=== PATIENT | female | born 1965 | race Caucasian/White ===

== ENCOUNTER 2017-01-22 09:19 | Outpatient (CLI) | payer BC ==
[~2017-01-22] VITALS: Ht 152.4 cm; Wt 122.5 kg
[2017-01-22] VITALS (12 sets, daily range): BP systolic 124–153; BP diastolic 77–87
[2017-01-22 10:03] LABS: BASO % 0 % (0-3); EOS % 2 % (0-3); HEMATOCRIT 46.2 % (36.0-47.0); HEMOGLOBIN 15.9 g/dL (12.0-15.5); LYMPH # 1.6 x10^3/uL (1.0-4.8); LYMPH % 18 % (24-48); MEAN CORPUSCULAR HEMOGLOBIN 30 pg (25-35); MEAN CORPUSCULAR HGB CONC 34 g/dL (31-37); MEAN CORPUSCULAR VOLUME 88 fL (79-100); MONO % 9 % (0-9); NEUT % 71 % (31-73); PLATELET COUNT 307 x10^3/uL (140-400); RED BLOOD COUNT 5.28 x10^6/uL (3.50-5.40); RED CELL DISTRIBUTION WIDTH 14.1 % (11.5-14.5); WHITE BLOOD COUNT 8.8 x10^3/uL (4.0-11.0)
[2017-01-22 10:10] LABS: CALCIUM 9.4 mg/dL (8.5-10.1); CREATININE 0.9 mg/dL (0.6-1.0); GFR 65.5; POTASSIUM 3.5 mmol/L (3.5-5.1)
[2017-01-22 10:14] LABS: PROTHROMBIN TIME PATIENT 12.6 SEC (11.7-14.0)
[2017-01-22] MEDS ORDERED: LEVO25TA4 PO (10:23)
[2017-01-22] MEDS ORDERED: METO25TA4 PO (10:23)
[2017-01-22] MEDS ORDERED: ASPI-482 PO (10:23)
[2017-01-22] MEDS ORDERED: IOHEXOL 350 MG/ML 100 ML VIAL. ONE (10:25)
[2017-01-22] MEDS ORDERED: LIDOCAINE 2% 20 ML VIAL. ONE (10:26)
[2017-01-22] MEDS ORDERED: LOSA50TA6 PO (10:27)
[2017-01-22] MEDS ORDERED: AMLO10TA2 PO (10:27)
[2017-01-22] MEDS ORDERED: SIMV40TA3 PO (10:27)
[2017-01-22] MEDS ORDERED: MIDAZOLAM HCL/PF 5 MG/5 ML VIAL. ONE (11:32)
[2017-01-22] MEDS ORDERED: HEPARIN for IV BOLUS 10,000 UNIT/10 ML VIAL. ONE (11:32)
[2017-01-22] MEDS ORDERED: VERAPAMIL 5 MG/2 ML VIAL. ONE (11:32)
[2017-01-22] MEDS ORDERED: fentaNYL PF VIAL 250 MCG/5 ML VIAL ONE (11:32)
[2017-01-22] MEDS ORDERED: NITROGLYCERIN 200 MCG/2 ML SYRINGE FOR CATH/VASC LAB. ONE (11:34)
--- NOTE | 2017-01-22 11:35 | PDOC ---
MODERATE SEDATION ASSESSMENT RISKS/ALTERNATIVES Risks/Alternatives Risks and alternatives of this type of sedation and procedure discussed with: RISK/ALTERNATIVES: Patient H & P ON CHART H & P H & P on chart and reviewed for co-morbid conditions and appropriate labs. H&P ON CHART: Yes STATUS PREG STATUS ASSESSED: N/A MEDS/ALLERGIES REVIEWED Meds/Allergies Reviewed Medications and Allergies including time and route of recently administered narcotics and sedatives. MEDS/ALLERGIES REVIEWED: Yes ASA RATING ASA RATING: II AIRWAY ASSESSMENT Airway Assessment Airway patency, oral function limitations, presence of caps, crowns, dentures, partials, and ability to extend neck assessed. AIRWAY ASSESSMENT: Yes MALLAMPATI SCORE MALLAMPATI SCORE: III PRE-SEDATION ASSESSMENT PRE-SEDATION ASSESSMENT: Yes ERASMO SWANSON MD Jan 22, 2017 11:35
[2017-01-22] MEDS ORDERED: IOHEXOL 300 MG/ML 100ML VIAL. IART ONE (12:00)
[2017-01-22] MEDS ORDERED: HEPARIN for IV BOLUS 10,000 UNIT/10 ML VIAL. IART ONE (12:00)
[2017-01-22] MEDS ORDERED: CONTRAST GIVEN MC PRN (12:00)
[2017-01-22] MEDS ORDERED: NITROGLYCERIN 200 MCG/2 ML SYRINGE FOR CATH/VASC LAB. IART ONE (12:00)
[2017-01-22] MEDS ORDERED: MIDAZOLAM HCL/PF 5 MG/5 ML VIAL. IV ONE (12:00)
[2017-01-22] MEDS ORDERED: LIDOCAINE 2% 20 ML VIAL. IJ ONE (12:00)
[2017-01-22] MEDS ORDERED: VERAPAMIL 5 MG/2 ML VIAL. IART ONE (12:00)
[2017-01-22] MEDS ORDERED: fentaNYL PF VIAL 250 MCG/5 ML VIAL IV ONE (12:00)
--- NOTE | 2017-01-22 16:01 | CARD ---
APPROVED REPORT Procedure(s) performed: MODERATE SEDATION: 25 MIN HISTORY : The patient is a 51 year-old female with a history of . INDICATION The indication(s) include : positive stress test, chest pain. PROCEDURE NARRATIVE The patient was brought electively to the cardiac catheterization lab. A timeout was performed confi rming the patient's name, date of , procedure, and site of procedure. All necessary personnel w ere wearing the appropriate protective equipment and radiation monitor devices. After explaining the risks and benefits of the procedure and alternatives, informed consent was obtained. (See nursing no josemanuel for medications administered). The right wrist was sterilely prepped and draped in the usual fas hion. The right wrist was infiltrated with 1 mL of 2% lidocaine for subcutaneous anesthesia. A 6 Fr ench Terumo glide sheath was inserted into the right radial artery without difficulty. Right and lef t coronary angiography was performed using a 6Fr TIG 4.0 catheter. Left ventricular end diastolic pr essure was obtained with a pigtail catheter and pullback was performed after left ventriculography. All catheter exchanges and advancements were performed over a guidewire. At case completion the righ t radial sheath was removed and a Terumo radial band was applied with 13 ml of air. The patient tole rated the procedure well and there were no immediate complications. HEMODYNAMICS: LVEDP 8 mm Hg No gradient on LV to aortic pullback. LEFT VENTRICULOGRAM: EF 65% Anterobasal: Normal. Anterolateral: Normal Apical: Normal Diaphragmatic: Normal Posterobasal: Normal *No significant mitral or aortic insufficiency. CORONARY ANGIOGRAPHY: LM is a large caliber vessel with normal angiographic appearance. LAD is a moderate caliber vessel with normal angiographic appearance. D1 is a small caliber vessel with normal angiographic appearance. LCx is a moderate caliber non-dominant vessel with normal angiographic appearance. OM1 is a moderate caliber vessel with normal angiographic appearance. RCA is a moderate caliber dominant tortuous vessel with normal angiographic appearance. RPDA and RPL are small caliber vessels with normal angiographic appearance. Conclusion 1. No significant coronary artery disease. Recommendations Aggressive Medical Therapy
== END 2017-01-22 15:30 | disposition home or self-care (01) ==
LOC: CCL 09:19
PROVIDERS: ATTEND Internal Medicine Cardiovascular Disease
DX: R94.39 Abnormal result of other cardiovascular function study (principal); Z79.01 Long term (current) use of anticoagulants; E78.00 Pure hypercholesterolemia, unspecified; I10 Essential (primary) hypertension; E66.9 Obesity, unspecified; Z68.43 Body mass index [BMI] 50.0-59.9, adult; K21.9 Gastro-esophageal reflux disease without esophagitis; E03.9 Hypothyroidism, unspecified; F41.9 Anxiety disorder, unspecified; Z90.49 Acquired absence of other specified parts of digestive tract; Z88.1 Allergy status to other antibiotic agents; Z90.710 Acquired absence of both cervix and uterus; Z91.040 Latex allergy status
CPT/HCPCS: 36415; 80048; 85025; 85610; 93458; 99152; 99153; C1769; C1892; J1644; J2250; J3010; J3490; Q9967; J2001

== ENCOUNTER → 2018-08-29 | Outpatient (CLI) | payer BC ==
[2017-01-22 15:31] VITALS: BP 147/85
[~2018-08-29] MED LIST: AMLO10TA8 PO; ASPI-482 PO; LEVO25TA4 PO; LOSA-73 PO; METO25TA4 PO; SIMV40TA3 PO
--- NOTE | 2018-08-29 10:41 | KCIC ---
MRI of the lumbar spine without contrast 08/29/2018 CLINICAL HISTORY: Chronic low back pain with bilateral leg numbness, right greater than left. TECHNIQUE: Unenhanced T1-weighted and T2-weighted sagittal and axial and inversion recovery sagittal images the lumbar spine were obtained. FINDINGS: Minimal S-shaped curvature of the thoracolumbar spine is seen. Very mild anterolisthesis of L4 in relation L5 is seen. Degenerative signal changes are seen involving all of the disks of the lumbar spine. Degenerative signal changes are seen within the marrow surrounding these discs. The conus medullaris is normal morphology, position, and signal characteristics. Incidental note is made of a 9 mm perineural cyst within the sacral spinal canal. The L1-2 disc space is within normal limits. At the L2-3 disc space is a minimal generalized disc bulge. Degenerative changes are seen involving the facet joints bilaterally. There is mildly ligamentum hypertrophy bilaterally. These findings do not result in significant central spinal canal or neural foraminal stenosis. At the L3-4 disc space there is a mild generalized disc bulge. Degenerative changes are seen involving the facet joints bilaterally. There is moderate ligamentum flavum hypertrophy bilaterally. Small facet joint effusions are seen. These findings when combined do not result in significant central spinal canal or neural foraminal stenosis. At the L4-5 disc space there is a mild generalized disc bulge. Degenerative changes are seen involving the facet joints bilaterally. There is moderate ligamentum flavum hypertrophy bilaterally. These findings when combined do not result in significant central spinal canal or neural foraminal stenosis. At the L5-S1 disc space there is a minimal generalized disc bulge. Degenerative changes are seen involving the facet joints bilaterally. These findings do not result in significant central spinal canal or neural foraminal stenosis. IMPRESSION: The changes of degenerative disc disease are seen throughout the mid and lower lumbar spine. These findings do not result in significant central spinal canal or neural foraminal stenosis. Electronically signed by: Bandar Barcenas MD (08/29/2018 10:39 AM) [facility]
== END | disposition home or self-care (01) ==
LOC: KCIC MRI 08:21
PROVIDERS: ATTEND Physician Assistant Medical
DX: M51.36 Other intervertebral disc degeneration, lumbar region (principal); M47.817 Spondylosis without myelopathy or radiculopathy, lumbosacral region; M51.27 Other intervertebral disc displacement, lumbosacral region; M47.814 Spondylosis without myelopathy or radiculopathy, thoracic region; G96.19 Other disorders of meninges, not elsewhere classified; M53.3 Sacrococcygeal disorders, not elsewhere classified; M43.8X5 Other specified deforming dorsopathies, thoracolumbar region
CPT/HCPCS: 72148

== ENCOUNTER 2019-02-13 10:58 | Inpatient (IN) | payer BC ==
[~2019-02-13] VITALS: Ht 152.4 cm; Wt 114.3 kg
[2019-02-13] VITALS (7 sets, daily range): BP systolic 124–160; BP diastolic 72–92
[~2019-02-13 10:58] MED LIST changes: +SIMV40TA18 PO; -SIMV40TA3 PO
--- NOTE | 2019-02-13 13:00 | NUR ---
Patient of Dr Puga admit at 1245 from [facility] via EMS. 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 Vital signs are wnl. Family at bedside. Patient in no apparent distress.
[2019-02-13] MEDS ORDERED: SIMV20TA18 PO (13:28)
[2019-02-13] MEDS ORDERED: VERAPAMIL 5 MG/2 ML VIAL. ONE (14:20)
[2019-02-13] MEDS ORDERED: HEPARIN for IV BOLUS 10,000 UNIT/10 ML VIAL. ONE (14:20)
[2019-02-13] MEDS ORDERED: fentaNYL PF VIAL 100 MCG/2 ML VIAL ONE (14:20)
[2019-02-13] MEDS ORDERED: MIDAZOLAM HCL/PF 5 MG/5 ML VIAL. ONE (14:20)
[2019-02-13] MEDS ORDERED: NITROGLYCERIN 200 MCG/2 ML SYRINGE FOR CATH/VASC LAB. ONE (14:20)
[2019-02-13] MEDS ORDERED: IODIXANOL 320 MG/ML 100 ML VIAL. ONE (14:21)
[2019-02-13] MEDS ORDERED: LIDOCAINE 1% PF 2 ML VIAL. ONE (14:21)
--- NOTE | 2019-02-13 14:34 | CONS ---
DATE OF CONSULTATION: 02/13/2019 REASON FOR CONSULTATION: Chest pain and positive troponin. HISTORY OF PRESENT ILLNESS: The patient is a pleasant 53-year-old woman with past medical history as noted below, presents to the hospital in the setting of some chest discomfort and palpitations. She was noted to have elevated troponin in the setting of a blood pressure of 200/100. After discussion over at [facility], she wished to be transferred to [place] for further evaluation with possibility of cardiac catheterization. Upon arrival to the ICU here, her blood pressure is well controlled and she denies any current chest pain, dyspnea, orthopnea or PND. She has not had any significant cardiac issues, but most recently underwent some spinal surgery and after this, had some palpitations the next day, which then prompted some elevated blood pressures and this letter to be evaluated in the hospital. Currently, she denies any other acute issues. She has a history of obesity and has been struggling with that above, otherwise no acute issues. PAST MEDICAL HISTORY: 1. Hypertension. 2. Dyslipidemia. 3. Morbid obesity. SOCIAL HISTORY: No alcohol, tobacco or illicit drug use. FAMILY HISTORY: Noncontributory. REVIEW OF SYSTEMS: Negative unless otherwise mentioned above in HPI. ALLERGIES: No known drug allergies. CURRENT CARDIOVASCULAR MEDICATIONS: Include losartan, amlodipine, metoprolol, and simvastatin. PHYSICAL EXAMINATION: VITAL SIGNS: Stable with blood pressure 120/80, heart rate 72. HEAD AND NECK: Unremarkable. CARDIAC: Regular rate and rhythm without murmurs, rubs or gallops. LUNGS: Clear to auscultation bilaterally. ABDOMEN: Obese, protuberant, nontender, nondistended. EXTREMITIES: No clubbing, cyanosis, or edema. 2+ radial pulses and 1+ dorsalis pedis pulses. NEUROLOGIC: No focal deficits. DIAGNOSTIC STUDIES: Troponin elevated to 0.812 at [facility] when initial was 0.017. EKG demonstrates sinus rhythm with prior inferior infarct. She had a cardiac catheterization 2 years ago, which did not reveal any significant pathology. Nuclear stress test 2 years ago revealed possible 3-vessel coronary artery disease. IMPRESSION: Chest pain in the setting of elevated blood pressure. I discussed with the patient that there is a lower chance of any significant coronary artery disease to develop over 2 years, but given her risk factors of obesity, hypertension, and dyslipidemia, it is not impossible that she may have developed new coronary lesions, which could have led to this elevated troponin. The patient will discuss the options including continued medical therapy and echocardiogram with conservative management versus more aggressive evaluation with cardiac catheterization for her non-ST elevation myocardial infarction. RECOMMENDATIONS: 1. Possible cardiac catheterization versus conservative management. 2. Continue aspirin and Lovenox until the patient decides regarding her management. 3. Supportive care. Thank you for this consultation. ERASMO SWANSON MD DR: TIM/nts JOB#: [id number] / [id number]
[2019-02-13 14:38] LABS: BASO # 0.1 x10^3/uL (0.0-0.2); BASO % 1 % (0-3); EOS % 0 % (0-3); HEMATOCRIT 50.6 % (36.0-47.0); LYMPH # 1.7 x10^3/uL (1.0-4.8); LYMPH % 12 % (24-48); MEAN CORPUSCULAR HEMOGLOBIN 31 pg (25-35); MEAN CORPUSCULAR HGB CONC 36 g/dL (31-37); MEAN CORPUSCULAR VOLUME 86 fL (79-100); MONO # 1.2 x10^3/uL (0.0-1.1); MONO % 9 % (0-9); NEUT # 11.1 x10^3/uL (1.8-7.7); NEUT % 79 % (31-73); PLATELET COUNT 222 x10^3/uL (140-400); RED BLOOD COUNT 5.87 x10^6/uL (3.50-5.40); RED CELL DISTRIBUTION WIDTH 14.6 % (11.5-14.5); WHITE BLOOD COUNT 14.1 x10^3/uL (4.0-11.0)
[2019-02-13 14:48] LABS: CALCIUM 9.6 mg/dL (8.5-10.1); CREATININE 0.8 mg/dL (0.6-1.0); GFR 74.5
[2019-02-13 14:54] LABS: ALBUMIN 3.7 g/dL (3.4-5.0); ALBUMIN/GLOBULIN RATIO 1.1 (1.0-1.7); MAGNESIUM 2.6 mg/dL (1.8-2.4); TOTAL BILIRUBIN 1.3 mg/dL (0.2-1.0)
[2019-02-13] MEDS ORDERED: IODIXANOL 320 MG/ML 100 ML VIAL. IART ONE (15:30)
[2019-02-13] MEDS ORDERED: LIDOCAINE 1% PF 2 ML VIAL. INJ ONE (15:30)
[2019-02-13] MEDS ORDERED: HEPARIN for IV BOLUS 10,000 UNIT/10 ML VIAL. IART ONE (15:30)
[2019-02-13] MEDS ORDERED: fentaNYL PF VIAL 100 MCG/2 ML VIAL IV ONE (15:30)
[2019-02-13] MEDS ORDERED: VERAPAMIL 5 MG/2 ML VIAL. IART ONE (15:30)
[2019-02-13] MEDS ORDERED: NITROGLYCERIN 200 MCG/2 ML SYRINGE FOR CATH/VASC LAB. IART ONE (15:30)
[2019-02-13] MEDS ORDERED: MIDAZOLAM HCL/PF 5 MG/5 ML VIAL. IV ONE (15:30)
--- NOTE | 2019-02-13 16:25 | PDOC ---
Provider Note Provider Note Ok to DC from CV standpoint Would increase Toprol XL to 50mg daily Can increase Losartan to 50mg bid if BP still elevated to > 140/90 Discussed with patient and family. ERASMO SWANSON MD Feb 13, 2019 16:25
[2019-02-13] MEDS ORDERED: METO25TA4 PO (17:17)
--- NOTE | 2019-02-13 19:05 | NUR ---
Discharge Note: [facility] Discharge instructions and discharge home medications reviewed with Patient and a copy given. All questions have been answered and understanding verbalized. The following instructions and handouts were given: coronary angiogram Discontinued lines and drains: dressing clean dry and intact. Patient discharged to home with self care via family
--- NOTE | 2019-02-13 19:35 | NUR ---
Patient not being discharged. Dr. Puga and Dr. Menjivar notified that patient became dizzy, diaphoretic, nauseated upon getting clothes on and packing up for d/c. Patient's family at bedside-- came to RN station to notify Sumit WYMAN that patient was not feeling "right" and was pale. Lab orders received from Dr. Puga. CVC status remains. See orders, medications, labs.
[2019-02-13] MEDS: METOPROLOL TART IMMED RELEASE 25 MG TABLET. PO SCH (20:44)
[2019-02-13] MEDS: SIMVASTATIN 20 MG TABLET PO SCH (20:45)
[2019-02-13] MEDS ORDERED: METOPROLOL SUCC 24HR ER 25 MG TAB.ER.24H. PO SCH (21:00)
[2019-02-13] MEDS ORDERED: ENOXAPARIN 40 MG/0.4 ML SYRINGE. SQ SCH (21:00)
[2019-02-13] MEDS: MAG HYDROX/ALUMINUM HYD/SIMETH 30 ML ORAL.SUSP PO PRN (22:01)
[2019-02-13] MEDS: IV NORMAL SALINE 1000ML BAG 1,000 ML IV SCH (22:01)
[2019-02-14 03:00] VITALS: BP 119/72
[2019-02-14] MEDS: MAG HYDROX/ALUMINUM HYD/SIMETH 30 ML ORAL.SUSP PO PRN (03:03)
[2019-02-14 05:56] LABS: ALBUMIN/GLOBULIN RATIO 0.9 (1.0-1.7); CALCIUM 8.9 mg/dL (8.5-10.1); CREATININE 0.7 mg/dL (0.6-1.0); GFR 86.9; TOTAL BILIRUBIN 0.9 mg/dL (0.2-1.0); TOTAL PROTEIN 6.4 g/dL (6.4-8.2)
[2019-02-14 07:00] VITALS: BP 152/90
--- NOTE | 2019-02-14 08:10 | PN ---
DATE: 02/14/2019 SUBJECTIVE: The patient was transferred yesterday from [facility] as her troponin has steadily risen and as per Cardiology recommendation, she was transferred to [facility]. She had had a cardiac catheterization done and apparently her coronary arteries are normal and therefore, a decision was made to discharge her home after adjustment of her metoprolol XL to 50 mg and losartan to 50 mg. According to the nursing staff of the ICU, the patient was given her metoprolol and apparently was ready to go home when she developed dizziness and her blood pressure was noted to be higher; and therefore, a decision was made to keep the patient overnight given that her blood pressure has risen after increasing the beta-felicia. I was concerned that she might have pheochromocytoma; and therefore, we started a 24-hour urine collection for VMA and metanephrine and decided to cancel the planned discharge. On questioning, the patient denied any further episodes of chest pain and the nursing staff stated that she has an uneventful night. PHYSICAL EXAMINATION: GENERAL: When I examined her this morning, she was resting flat, sleeping comfortably, in no apparent respiratory distress. No pallor, jaundice, cyanosis or thyromegaly. No jugular venous distention. No lower limb edema. VITAL SIGNS: Her heart rate was 74, blood pressure was 119/72, temperature was 98.9, respiratory rate was 20, and oxygen saturation was 93% on 2 liters of oxygen. HEAD, EYES, EARS, NOSE AND THROAT: Showed normocephalic, atraumatic. NECK: Supple. HEART: Showed normal first and second heart sounds. No gallop or murmur. CHEST: Clear to auscultation. No crepitation or rhonchi. ABDOMEN: Distended, soft, nontender. NEUROLOGIC: She was sleepy, but arousable. All cranial nerves intact. She moves extremities without difficulty. Her intake over the last 24 hours was 1950, output was 700. LABORATORY DATA: Her lab work this morning showed a white cell count is down to 11,200, hemoglobin 15, hematocrit 46, MCV 88 and platelet count of 53,000. Her chemistry showed a serum sodium 139, potassium 4, chloride 104, bicarbonate 24, anion gap of 11, BUN 10, creatinine 0.7, estimated GFR was 87 mL per minute. Her glucose 128. Her calcium was 8.9. Total bilirubin, AST, ALT, alkaline phosphatase were normal. Her total protein was 6.4, albumin was 3. ASSESSMENT: In summary, this is a 53-year-old female patient who presented to the Emergency Room of [facility] with recurrent episode of chest pain, shortness of breath. Her troponin has steadily risen from less than 0.17 to 0.84. She was transferred to [facility] and underwent catheterization that apparently showed her coronary arteries are clear. A decision was made to discharge her home after increasing her antihypertensive medication. Unfortunately, the patient's blood pressure went higher and the patient felt dizzy; and therefore, a decision was made to keep her overnight. Of note, when she came to [facility], her lab work showed that her white cell count was high at 15,000, her hemoglobin was 19, hematocrit 56 and platelet count 251,000 with an MCV of 89 and when she arrived here yesterday, her hemoglobin was 18, hematocrit 50.6. White cell count was still high and platelets were 222 and this morning, her platelets have dramatically dropped down to 53,000. She also dropped her H and H, has dropped from 18 and 50 to 15 and 46, although her chemistry remained stable. In fact, her BUN is down from 12 to 10 and creatinine remained stable. PLAN: My plan is obviously to discontinue Lovenox and monitor her H and H and platelet count. Continue 24-hour urine collection, although I am not really sure whether that would come to any conclusion as her blood pressure seems to be responding well now. KEELEY GOLD MD DR: NICOLAS/jitendra JOB#: [id number] / [id number]
[2019-02-14] MEDS: amLODIPine BESYLATE 10 MG TABLET PO SCH (08:23)
[2019-02-14] MEDS: METOPROLOL TART IMMED RELEASE 25 MG TABLET. PO SCH ×2 (08:24→20:51)
[2019-02-14] MEDS: LOSARTAN POTASSIUM 50 MG TABLET. PO SCH (08:24)
--- NOTE | 2019-02-14 08:51 | HP ---
ADMIT DATE: 02/13/2019 HISTORY OF PRESENT ILLNESS: The patient is a 53-year-old female patient, who came to the Emergency Room of [facility] complaining of chest pain. She has been having intermittent chest pain that started the day before, it is worse with exertion and improves with rest. She also has some shortness of breath. Denied any nausea or vomiting when she arrived. Denied any diaphoresis or radiation in to the left arm or left shoulder. At its worst, the pain was about 5 of 10. She describes it as squeezing sensation. She apparently had cardiac catheterization 2-3 years ago and was reported to be negative. She was evaluated in the Emergency Room and had an EKG, which basically showed that she was in sinus tachycardia at a rate of 105 beats per minute with normal axis, right bundle branch block. No ST segment elevation or depression. Did have an inverted T-wave in V1. She has had her first set of cardiac enzyme was 0.017, second one went up to 0.121 and the third one went up to 0.8-7 and therefore, the patient was transferred to [facility] for cardiac catheterization. PAST MEDICAL HISTORY: Significant for hypertension, hyperlipidemia, morbid obesity, obstructive sleep apnea. She has a history of DVT and pulmonary embolism. Apparently at that time, she had endometriosis treated with oral contraceptive pills and that induced DVT and subsequent pulmonary emboli, for which she was treated with Coumadin. She is no longer on any blood thinner. PAST SURGICAL HISTORY: Significant for . She has had total abdominal hysterectomy, bilateral salpingo-oophorectomy, tonsillectomy, hernia repair, left heart catheterization about 2 years ago. She had a nerve ablation procedure done at [facility] done last Saturday, although I do not have the specifics. ALLERGIES: SHE IS ALLERGIC TO AZITHROMYCIN, CIPRO AND LATEX. MEDICATIONS: She is currently on following medications: She is on simvastatin 20 mg at bedtime, metoprolol succinate 25 mg at bedtime, amlodipine 10 mg once a day and losartan potassium 50 mg daily. FAMILY HISTORY: She has 2 brothers and 2 sisters, the oldest brother of thyroid cancer; second brother , had hypertension and arthritis and third brother has hypertension. Her one sister in a motor vehicle accident. One sister is still alive and has hypertension. Her father in his early 60s with COPD and myocardial infarction. Her mother in her late 60s due to dementia and abdominal aortic aneurysm rupture. SOCIAL HISTORY: She is , has 2 daughters and 1 son. She has never smoked, does not drink alcohol or use recreational drugs. She is a [id number] mom. PHYSICAL EXAMINATION: GENERAL: On examining her on arrival to [facility], she looked well and was clearly in no apparent respiratory distress. No pallor, jaundice, cyanosis or thyromegaly. No jugular venous distention. No limb edema. VITAL SIGNS: Her heart rate was 82, blood pressure was 154/75, temperature was 98.5, respiratory rate was 18. Her oxygen saturation was 94%. HEAD, EYES, EARS, NOSE AND THROAT: Showed normocephalic, atraumatic. NECK: Supple. HEART: Showed normal first and second heart sounds. No gallop or murmur. CHEST: Clear to auscultation. No crepitation or rhonchi. ABDOMEN: Distended, soft, nontender. NEUROLOGIC: She was awake, alert, responding appropriately. All cranial nerves intact. EXTREMITIES: She moves extremities without difficulty. She ambulates without assistance or assistive devices. PLAN: To consult the Cardiology team as she was transferred with elevated troponin, and was seemed to be an non-ST segment elevation myocardial infarction. KEELEY GOLD MD DR: NICOLAS/jitendra JOB#: [id number] / [id number]
--- NOTE | 2019-02-14 09:57 | CONS ---
DATE OF CONSULTATION: 02/14/2019 HEMATOLOGY/ONCOLOGY CONSULTATION REQUESTING PHYSICIAN: Edd Anderson MD REASON FOR CONSULTATION: Thrombocytopenia. HISTORY OF PRESENT ILLNESS: The patient is a 53-year-old female who presented to [facility] for chest discomfort and palpitations. She was noted to have high blood pressure of 200/100 and elevated troponin level. She was transferred to [facility] for cardiac catheterization. She was evaluated by Cardiology and she underwent cardiac catheterization on 02/13/2019. The plan was to discharge her, but she developed dizziness and hence she was admitted for further evaluation. Her platelet count on 02/14/2019 dropped to 53,000 and previous day on 02/13/2019 it was 222,000 and hence I was consulted for evaluation of thrombocytopenia. Her hemoglobin was 18 at the time of admission and it dropped to 15.3 on 02/14/2019. No nose bleeds or gum bleeding. No hematemesis, melena, hematochezia. No hemoptysis or hematuria. No history of loss of weight or loss of appetite. She does have sleep apnea. I discussed with registered nurse. The patient received heparin and Lovenox, which have both been discontinued now due to thrombocytopenia. She received heparin and Lovenox on 02/13/2019 and a platelet dropped to 53,000 on 02/14/2019. PAST MEDICAL HISTORY: Hypertension, hyperlipidemia, obstructive sleep apnea, obesity, history of DVT and pulmonary embolism. At that time, she had endometriosis and treated with oral contraceptive pills, which induced the DVT and subsequently a pulmonary embolism for which she received Coumadin and later on discontinued. FAMILY HISTORY: Oldest brother has thyroid cancer. SOCIAL HISTORY: She is . She has 2 daughters and 1 son. Never smoker. No alcohol abuse. REVIEW OF SYSTEMS: A 12-point review of system was performed. Pertinent positives are mentioned in the history of present illness. Rest of the system review is negative. PHYSICAL EXAMINATION: GENERAL APPEARANCE: The patient is a 53-year-old female who is in no acute cardiorespiratory distress. VITAL SIGNS: Blood pressure 154/92, temperature 98.9, heart rate 74. HEENT: Atraumatic, normocephalic. EYES: No icterus. NECK: Supple. CHEST: Bilaterally symmetrical. HEART: S1, S2 normal. ABDOMEN: Soft, nontender. CENTRAL NERVOUS SYSTEM: No focal neurological deficits. LYMPHATICS: No lymphadenopathy. SKIN: No rashes. PSYCHOLOGIC: Mood and affect are appropriate. MUSCULOSKELETAL: No joint effusions. LABORATORY DATA: WBC 14.1, hemoglobin 18, platelet count 222 on 02/13/2019. On 02/14/2019, platelet count dropped to 53,000 with a hemoglobin of 15.3 and a WBC of 11.2. Total bilirubin 0.9, AST 25, ALT 33, alkaline phosphatase 66, total protein 6.4, albumin 3.0. Review of the old records indicates that her platelet counts were normal at 307 on 01/22/2017. IMPRESSION AND PLAN: 1. Acute thrombocytopenia with a drop in the platelet count from 222,000 on 02/13/2019, and She received heparin and platelet count dropped to 53,000 on 02/14/2019. She had also received Lovenox. The acute drop in the platelet count in the setting of heparin exposure is suggestive of type 1 heparin-induced thrombocytopenia, which presents within the first 2 days after exposure to heparin and platelet count typically normalizes within the next few days. Type 1 heparin-induced thrombocytopenia is a nonimmune disorder that results from the direct effect of heparin on platelet activation. I do not suspect a type 2 heparin-induced thrombocytopenia which is an immune-mediated disorder that typically occurs 4-10 days after exposure to heparin and which has a risk of life and limb threatening thrombotic complications. In general machine operator, the term heparin-induced thrombocytopenia refers to type 2 heparin-induced thrombocytopenia. I do not suspect that she heparin-induced thrombocytopenia. I discussed with registered nurse. I also discussed with Dr. Puga. Heparin and Lovenox have been discontinued. I would continue to monitor. I would expect the platelet counts to improve. I will also check reticulocyte count and LDH levels and haptoglobin. No clinical evidence of bleeding. 2. Sleep apnea. Continue management per Dr. Puga. 3. Polycythemia, which I suspect is due to sleep apnea. Hemoglobin and hematocrit normalized on 02/14/2019. ALFRED JOSEPH MD DR: LAURIE/jitendra JOB#: [id number] / [id number]
[2019-02-14 11:00] VITALS: BP 132/80
[2019-02-14] MEDS: IV NORMAL SALINE 1000ML BAG 1,000 ML IV SCH (11:20)
[2019-02-14 11:21] LABS: HEMATOCRIT 48.3 % (36.0-47.0); HEMOGLOBIN 16.8 g/dL (12.0-15.5); RED BLOOD COUNT 5.49 x10^6/uL (3.50-5.40); RED CELL DISTRIBUTION WIDTH 14.4 % (11.5-14.5); WHITE BLOOD COUNT 13.7 x10^3/uL (4.0-11.0)
[2019-02-14 15:00] VITALS: BP 132/80
[2019-02-14 18:54] VITALS: BP 159/83
[2019-02-14] MEDS: SIMVASTATIN 20 MG TABLET PO SCH (20:50)
[2019-02-14 23:51] VITALS: BP 133/65
[2019-02-15] MEDS: IV NORMAL SALINE 1000ML BAG 1,000 ML IV SCH ×2 (00:40→10:40)
[2019-02-15] MEDS ORDERED: HYDROcodone/APAP 5/325MG 1 TAB TABLET PO PRN (02:45)
[2019-02-15 03:30] VITALS: BP 146/97
[2019-02-15] MEDS: MAG HYDROX/ALUMINUM HYD/SIMETH 30 ML ORAL.SUSP PO PRN (06:23)
[2019-02-15 07:52] VITALS: BP 113/65
[2019-02-15] MEDS: LOSARTAN POTASSIUM 50 MG TABLET. PO SCH (08:50)
[2019-02-15] MEDS: amLODIPine BESYLATE 10 MG TABLET PO SCH (08:51)
[2019-02-15] MEDS: METOPROLOL TART IMMED RELEASE 25 MG TABLET. PO SCH (08:51)
--- NOTE | 2019-02-15 09:07 | PDOC ---
PROGRESS NOTES Subjective Subjective HPI - f/u of Acute thrombocytopenia ROS - no bleeding, no CP Objective Objective Vital Signs Date Time Temp Pulse Resp B/P (MAP) Pulse Ox O2 Delivery O2 Flow Rate FiO2 02/15/19 08:51 106 113/65 02/15/19 07:52 98.6 20 95 Room Air 98.6 02/15/19 04:15 2.0 Intake and Output 02/15/19 07:00 Intake Total 200 ml Output Total 525 ml Balance -325 ml Intake Oral 200 ml Output Urine Total 525 ml # Voids 2 Physical Exam Heart: Normal S1, Normal S2 General: Alert, Oriented X3 Lungs: Clear to auscultation Neuro: Normal speech Psych/Mental Status: Mental status NL Assessment Assessment IMPRESSION AND PLAN: 1. Acute thrombocytopenia with a drop in the platelet count from 222,000 on 02/13/2019, and She received heparin and platelet count dropped to 53,000 on 02/14/2019. She had also received Lovenox. Lab reported that this was an error as the blood was clotted. Plt now 222. I do not suspect that she heparin-induced thrombocytopenia. I discussed with registered nurse. No hemolysis as unremarkable reticulocyte count and LDH levels and haptoglobin. No clinical evidence of bleeding. 2. Sleep apnea. Continue management per Dr. Puga. 3. Polycythemia, which I suspect is due to sleep apnea. Hemoglobin and hematocrit normalized on 02/14/2019. Comment Review of Relevant I have reviewed the following items jacque (where applicable) has been applied. Labs Laboratory Tests Test 02/13/19 14:25 02/13/19 19:19 02/13/19 19:45 02/14/19 05:00 White Blood Count 14.1 x10^3/uL (4.0-11.0) Red Blood Count 5.87 x10^6/uL (3.50-5.40) Hemoglobin 18.0 g/dL (12.0-15.5) Hematocrit 50.6 % (36.0-47.0) Mean Corpuscular Volume 86 fL (79-100) Mean Corpuscular Hemoglobin 31 pg (25-35) Mean Corpuscular Hemoglobin Concent 36 g/dL (31-37) Red Cell Distribution Width 14.6 % (11.5-14.5) Platelet Count 222 x10^3/uL (140-400) Neutrophils (%) (Auto) 79 % (31-73) Lymphocytes (%) (Auto) 12 % (24-48) Monocytes (%) (Auto) 9 % (0-9) Eosinophils (%) (Auto) 0 % (0-3) Basophils (%) (Auto) 1 % (0-3) Neutrophils # (Auto) 11.1 x10^3/uL (1.8-7.7) Lymphocytes # (Auto) 1.7 x10^3/uL (1.0-4.8) Monocytes # (Auto) 1.2 x10^3/uL (0.0-1.1) Eosinophils # (Auto) 0.0 x10^3/uL (0.0-0.7) Basophils # (Auto) 0.1 x10^3/uL (0.0-0.2) Sodium Level 144 mmol/L (136-145) 139 mmol/L (136-145) Potassium Level 4.0 mmol/L (3.5-5.1) 4.0 mmol/L (3.5-5.1) Chloride Level 105 mmol/L (98-107) 104 mmol/L (98-107) Carbon Dioxide Level 27 mmol/L (21-32) 24 mmol/L (21-32) Anion Gap 12 (6-14) 11 (6-14) Blood Urea Nitrogen 12 mg/dL (7-20) 10 mg/dL (7-20) Creatinine 0.8 mg/dL (0.6-1.0) 0.7 mg/dL (0.6-1.0) Estimated GFR (Cockcroft-Gault) 74.5 86.9 BUN/Creatinine Ratio 15 (6-20) 14 (6-20) Glucose Level 111 mg/dL (70-99) 128 mg/dL (70-99) Calcium Level 9.6 mg/dL (8.5-10.1) 8.9 mg/dL (8.5-10.1) Magnesium Level 2.6 mg/dL (1.8-2.4) Total Bilirubin 1.3 mg/dL (0.2-1.0) 0.9 mg/dL (0.2-1.0) Aspartate Amino Transf (AST/SGOT) 18 U/L (15-37) 25 U/L (15-37) Alanine Aminotransferase (ALT/SGPT) 31 U/L (14-59) 33 U/L (14-59) Alkaline Phosphatase 80 U/L (46-116) 66 U/L (46-116) Troponin I Quantitative 0.737 ng/mL (0.000-0.055) 0.189 ng/mL (0.000-0.055) Total Protein 7.0 g/dL (6.4-8.2) 6.4 g/dL (6.4-8.2) Albumin 3.7 g/dL (3.4-5.0) 3.0 g/dL (3.4-5.0) Albumin/Globulin Ratio 1.1 (1.0-1.7) 0.9 (1.0-1.7) Thyroid Stimulating Hormone (TSH) 3.180 uIU/mL (0.358-3.74) Glucose (Fingerstick) 137 mg/dL (70-99) Lactic Acid Level 1.7 mmol/L (0.4-2.0) Test 02/14/19 05:10 02/14/19 09:20 02/14/19 11:04 Magnesium Level 3.0 mg/dL (1.8-2.4) Haptoglobin 197 mg/dL (34-200) Lactate Dehydrogenase 280 U/L (81-234) White Blood Count 13.7 x10^3/uL (4.0-11.0) Red Blood Count 5.49 x10^6/uL (3.50-5.40) Hemoglobin 16.8 g/dL (12.0-15.5) Hematocrit 48.3 % (36.0-47.0) Mean Corpuscular Volume 88 fL (79-100) Mean Corpuscular Hemoglobin 31 pg (25-35) Mean Corpuscular Hemoglobin Concent 35 g/dL (31-37) Red Cell Distribution Width 14.4 % (11.5-14.5) Platelet Count 202 x10^3/uL (140-400) Absolute Reticulocyte Count 0.125 x10^6/uL (0.020-0.120) Percent Reticulocyte Count 2.3 % (0.5-2.3) Immature Reticulocyte Fraction 0.42 (0.20-0.60) Laboratory Tests Test 02/14/19 09:20 02/14/19 11:04 Haptoglobin 197 mg/dL (34-200) Lactate Dehydrogenase 280 U/L (81-234) White Blood Count 13.7 x10^3/uL (4.0-11.0) Red Blood Count 5.49 x10^6/uL (3.50-5.40) Hemoglobin 16.8 g/dL (12.0-15.5) Hematocrit 48.3 % (36.0-47.0) Mean Corpuscular Volume 88 fL (79-100) Mean Corpuscular Hemoglobin 31 pg (25-35) Mean Corpuscular Hemoglobin Concent 35 g/dL (31-37) Red Cell Distribution Width 14.4 % (11.5-14.5) Platelet Count 202 x10^3/uL (140-400) Absolute Reticulocyte Count 0.125 x10^6/uL (0.020-0.120) Percent Reticulocyte Count 2.3 % (0.5-2.3) Immature Reticulocyte Fraction 0.42 (0.20-0.60) Medications Current Medications Amlodipine Besylate (Norvasc) 10 mg DAILY PO Last administered on 02/15/19at 08:51; Start 02/14/19 at 09:00 Losartan Potassium (Cozaar) 50 mg DAILY PO Last administered on 02/15/19at 08:50; Start 02/14/19 at 09:00 Metoprolol Succinate (Toprol Xl) 25 mg QHS PO ; Start 02/13/19 at 21:00; Stop 02/13/19 at 19:33; Status DC Simvastatin (Zocor) 20 mg QHS PO Last administered on 02/14/19at 20:50; Start 02/13/19 at 21:00 Enoxaparin Sodium (Lovenox Per Pharmacy Prophylaxis Dosing) 1 each PRN DAILY PRN MC SEE COMMENTS; Start 02/13/19 at 13:45; Stop 02/14/19 at 07:26; Status DC Enoxaparin Sodium (Lovenox 40mg Syringe) 40 mg Q12HR SQ Last administered on 02/13/19at 20:45; Start 02/13/19 at 21:00; Stop 02/14/19 at 07:26; Status DC Fentanyl Citrate (Fentanyl 2ml Vial) 100 mcg [facility] ONCE .ROUTE ; Start 02/13/19 at 14:20; Stop 02/13/19 at 14:20; Status DC Midazolam HCl (Versed) 5 mg STK-MED ONCE .ROUTE ; Start 02/13/19 at 14:20; Stop 02/13/19 at 14:20; Status DC Heparin Sodium (Porcine) (Heparin Sodium) 10,000 unit STK-MED ONCE .ROUTE ; Start 02/13/19 at 14:20; Stop 02/13/19 at 14:20; Status DC Verapamil HCl (Verapamil) 5 mg STK-MED ONCE .ROUTE ; Start 02/13/19 at 14:20; Stop 02/13/19 at 14:20; Status DC Nitroglycerin (Nitroglycerin) 200 mcg STK-MED ONCE .ROUTE ; Start 02/13/19 at 14:20; Stop 02/13/19 at 14:20; Status DC Iodixanol (Visipaque 320) 100 ml STK-MED ONCE .ROUTE ; Start 02/13/19 at 14:21; Stop 02/13/19 at 14:22; Status DC Lidocaine HCl (Xylocaine-Mpf 1% 2ml Vial) 2 ml STK-MED ONCE .ROUTE ; Start 02/13/19 at 14:21; Stop 02/13/19 at 14:22; Status DC Heparin Sodium/ Sodium Chloride 1,000 ml @ As Directed STK-MED ONCE .ROUTE ; Start 02/13/19 at 14:21; Stop 02/13/19 at 14:22; Status DC Nitroglycerin (Nitroglycerin) 200 mcg 1X ONCE IART Last administered on 02/13/19at 15:43; Start 02/13/19 at 15:30; Stop 02/13/19 at 15:34; Status DC Verapamil HCl (Verapamil) 2.5 mg 1X ONCE IART Last administered on 02/13/19at 15:44; Start 02/13/19 at 15:30; Stop 02/13/19 at 15:34; Status DC Heparin Sodium (Porcine) (Heparin Sodium) 2,500 unit 1X ONCE IART Last administered on 02/13/19at 15:45; Start 02/13/19 at 15:30; Stop 02/13/19 at 15:34; Status DC Heparin Sodium/ Sodium Chloride (HEPARIN for ARTERIAL LINE FLUSH) 1,000 unit 1X ONCE IART Last administered on 02/13/19 15:43; Start 02/13/19 at 15:30; Stop 02/13/19 at 15:34; Status DC Heparin Sodium/ Sodium Chloride (HEPARIN for ARTERIAL LINE FLUSH) 1,000 unit 1X ONCE IART Last administered on 02/13/19at 15:43; Start 02/13/19 at 15:30; Stop 02/13/19 at 15:34; Status DC Midazolam HCl (Versed) 5 mg 1X ONCE IV Last administered on 02/13/19 15:44; Start 02/13/19 at 15:30; Stop 02/13/19 at 15:34; Status DC Fentanyl Citrate (Fentanyl 2ml Vial) 100 mcg 1X ONCE IV Last administered on 02/13/19 15:44; Start 02/13/19 at 15:30; Stop 02/13/19 at 15:34; Status DC Iodixanol (Visipaque 320) 100 ml 1X ONCE IART Last administered on 02/13/19 15:43; Start 02/13/19 at 15:30; Stop 02/13/19 at 15:34; Status DC Lidocaine HCl (Xylocaine-Mpf 1% 2ml Vial) 2 ml 1X ONCE INJ Last administered on 02/13/19 15:43; Start 02/13/19 at 15:30; Stop 02/13/19 at 15:34; Status DC Metoprolol Tartrate (Lopressor) 25 mg BID PO Last administered on 02/15/19 08:51; Start 02/13/19 at 21:00 Sodium Chloride 1,000 ml @ 75 mls/hr [id number] IV Last administered on 02/13/19 22:01; Start 02/13/19 at 22:00 Al Hydroxide/Mg Hydroxide (Mylanta Plus Xs) 30 ml PRN Q2HR PRN PO HEARTBURN / GAS Last administered on 02/15/19 06:23; Start 02/13/19 at 21:45 Acetaminophen/ Hydrocodone Bitart (Lortab 5/325) 1 tab PRN Q4HRS PRN PO MODERATE PAIN 4-6 Last administered on 02/15/19 03:12; Start 02/15/19 at 02:4 5 Active Scripts Active Reported Metoprolol Tartrate 25 Mg Tablet 1 Tab PO BID Simvastatin 20 Mg Tablet 1 Tab PO QHS Losartan Potassium 50 Mg Tablet 50 Mg PO DAILY Amlodipine Besylate 10 Mg Tablet 10 Mg PO DAILY Vitals/I & O Vital Sign - Last 24 Hours 02/14/19 02/14/19 02/14/19 02/14/19 11:00 15:00 18:54 20:00 Temp 98.9 98.9 98.9 98.9 98.9 98.9 Pulse 74 74 91 Resp 16 B/P (MAP) 132/80 (97) 132/80 (97) 159/83 (108) Pulse Ox 93 93 97 O2 Delivery Room Air Room Air Nasal Cannula Room Air O2 Flow Rate 2.0 2.0 2.0 2.0 02/14/19 02/14/19 02/14/19 02/15/19 20:51 23:51 23:52 03:12 Temp 98.2 98.2 Pulse 94 72 Resp 21 14 B/P (MAP) 140/85 133/65 (87) Pulse Ox 86 91 2 O2 Delivery Room Air Nasal Cannula Nasal Cannula O2 Flow Rate 2.0 2.0 02/15/19 02/15/19 02/15/19 02/15/19 03:30 04:15 07:52 08:50 Temp 98.4 98.6 98.4 98.6 Pulse 79 79 95 Resp 20 16 20 B/P (MAP) 146/97 (113) 113/65 (81) 113/65 Pulse Ox 95 95 O2 Delivery Room Air Nasal Cannula Room Air O2 Flow Rate 2.0 02/15/19 02/15/19 08:51 08:51 Pulse 106 106 B/P (MAP) 113/65 113/65 Intake and Output 02/14/19 02/14/19 02/15/19 15:00 23:00 07:00 Intake Total 200 ml Output Total 525 ml Balance -525 ml 200 ml ALFRED JOSEPH MD Feb 15, 2019 09:07
[2019-02-15 09:36] LABS: BASO % 0 % (0-3); EOS # 0.1 x10^3/uL (0.0-0.7); EOS % 0 % (0-3); HEMATOCRIT 49.5 % (36.0-47.0); HEMOGLOBIN 17.1 g/dL (12.0-15.5); LYMPH # 1.7 x10^3/uL (1.0-4.8); LYMPH % 13 % (24-48); MEAN CORPUSCULAR HEMOGLOBIN 30 pg (25-35); MEAN CORPUSCULAR HGB CONC 35 g/dL (31-37); MEAN CORPUSCULAR VOLUME 87 fL (79-100); MONO # 0.9 x10^3/uL (0.0-1.1); MONO % 7 % (0-9); NEUT # 10.3 x10^3/uL (1.8-7.7); NEUT % 79 % (31-73); PLATELET COUNT 208 x10^3/uL (140-400); RED CELL DISTRIBUTION WIDTH 14.7 % (11.5-14.5)
[2019-02-15 10:00] LABS: CALCIUM 9.3 mg/dL (8.5-10.1); CREATININE 0.9 mg/dL (0.6-1.0); POTASSIUM 4.2 mmol/L (3.5-5.1)
[2019-02-15 10:06] LABS: ALBUMIN 3.6 g/dL (3.4-5.0); TOTAL BILIRUBIN 1.4 mg/dL (0.2-1.0); TOTAL PROTEIN 7.3 g/dL (6.4-8.2)
[2019-02-15 10:37] VITALS: BP 159/86
[2019-02-15] MEDS ORDERED: AMOX1TAB61 PO (11:00)
[2019-02-15] MEDS ORDERED: METO25TA4 PO (11:00)
--- NOTE | 2019-02-15 12:09 | NUR ---
Pt discharged to home. All discharge instructions, follow ups, post cath care instructions reviewed with pt and family. Site to right wrist without redness, warmth, drainage. Pt assisted to car via wheelchair with family and staff.
--- NOTE | 2019-02-15 12:31 | DS ---
DATE OF DISCHARGE: 02/15/2019 HOSPITAL COURSE: The patient is a 53-year-old female patient, who was transferred from [facility] where she presented with intermittent chest pain that is worse on exertion and improves with the rest. She also has some shortness of breath. She was admitted and has had 3 sets of cardiac enzymes showed troponin is steadily rising and therefore, the patient was transferred to [facility] for cardiac catheterization. She actually had a cardiac catheterization which showed the coronary arteries are clear; however, when she was about to be discharged, she started feeling dizzy and blood pressure was high, and there was also some abnormal lab work including thrombocytopenia that apparently was due to clotted sample. Anyhow, we initially thought this was response to her heparin and Lovenox, and was seen by Dr. Garza and ____ twice yesterday and today showed that her platelet counts are normal. 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 She is not compliant with her CPAP or BiPAP and she also complained of headache, stuffy nose with the greenish discharge from her nostrils and apparently she has tendency to sinusitis, so the patient was discharged home to continue on metoprolol 25 mg twice a day, Augmentin 875 mg twice a day together with amlodipine as well as losartan and simvastatin. PHYSICAL EXAMINATION: GENERAL: When I saw her this morning, she looked well and was clearly in no apparent respiratory distress. No pallor, jaundice, cyanosis, or thyromegaly. No jugular venous distention. No limb edema. VITAL SIGNS: Her heart rate was 79, blood pressure was 159/86, temperature was 98.2, respiratory rate was 20, and oxygen saturation was 92%. The rest of clinical exam is stable. LABORATORY DATA: This morning showed a white cell count of 13,000, hemoglobin of 17, hematocrit 49.5, MCV 87 and platelet count 208,000. Her chemistry showed a serum sodium of 140, potassium 4.2, chloride was 101, bicarbonate 29, anion gap of 10, BUN 13, creatinine 0.9, estimated GFR was 65 mL per minute. Her glucose ____, calcium was 9.3. Total bilirubin is normal. AST, ALT, alkaline phosphatase were normal. Lactic acid was slightly elevated at 218, total protein was 7.3, albumin was 3.6. FINAL DISCHARGE DIAGNOSES: 1. Chest pain, myocardial infarction was ruled out. She underwent left heart catheterization with the normal coronary arteries. 2. Hypertension. 3. Hyperlipidemia. 4. Morbid obesity, obstructive sleep apnea. 5. History of deep venous thrombosis and pulmonary embolism. 6. 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 She has obstructive sleep apnea. She is noncompliant with her CPAP. KEELEY GOLD MD DR: NICOLAS/jitendra JOB#: [id number] / [id number]
--- NOTE | 2019-02-16 08:18 | EKG ---
[facility] [address] [place] [address] Test Date: 2019-02-14 Test Time: 05:43:51 Pat Name: KULDEEP SHANE Department: Room: 262 1 Gender: F Bus Matron: CQ : 1965 Requested By: KEELEY GOLD Order Number: [id number] Reading MD: Edu Menjivar MD Measurements Intervals [place] Rate: 88 P: 40 [place]: 146 QRS: -48 QRSD: 126 T: 84 QT: 400 QTc: 488 Interpretive Statements SINUS ARRHYTHMIA ABNORMAL LEFT AXIS DEVIATION NON SPECIFIC INTRAVENTRICULAR BLOCK Electronically Signed On 02-23-2019 8:56:23 CDT by Edu Menjivar MD
--- NOTE | 2019-02-16 08:18 | EKG ---
[facility] [address] [place] [address] Test Date: 2019-02-14 Test Time: 05:31:54 Pat Name: KULDEEP SHANE Department: Room: 262 1 Gender: F Scraper Operator: SANJAY : 1965 Requested By: KEELEY GOLD Order Number: [id number] Reading MD: Edu Menjivar MD Measurements Intervals [place] Rate: 80 P: 26 [place]: 162 QRS: 5 QRSD: 114 T: 12 QT: 408 QTc: 474 Interpretive Statements SINUS RHYTHM RBBB Electronically Signed On 02-23-2019 8:56:13 CDT by Edu Menjivar MD
--- NOTE | 2019-02-16 11:24 | CARD ---
MR#: [id number] Date of Study: 02/13/2019 Ordering Physician: ERASMO SWANSON, Referring Physician: ERASMO SWANSON, Tech: RT Inez (R) JAVID APPROVED REPORT Technologist: RT Inez (R) JAVID Nurse: Azalea Vázquez R.N. Procedure(s) performed: DOSE: 61.29 Gycm2 FLOURO TIME: 3.4 MINUTES CONTRAST: 73 VISIPAQUE MODERATE SEDATION: 30 MINUTES LHC, Coronary angiography, Left ventriculography HISTORY : The patient is a 53 year-old female with a history of . INDICATION The indication(s) include : non-STEMI . [facility] Clinical Frailty Scale [facility] Clinical Frailty Scale: Managing Well Heart Failure Heart Failure: No If Yes, HF Type: Diastolic If Yes, NYHA Class: Class II PROCEDURE NARRATIVE INFORMED CONSENT: After explaining the risks and benefits of the procedure and alternatives, informed consent was obtained. The patient was brought electively to the cardiac catheterization lab. A timeout was performed confi rming the patient's name, date of , procedure, and site of procedure. All necessary personnel w ere wearing the appropriate protective equipment and radiation monitor devices. (See nursing notes for medications administered). ACCESS: The right wrist was sterilely prepped and draped in the usual fashion. The right wrist was infiltrat ed with 1 mL of 2% lidocaine for subcutaneous anesthesia. A 6 Sami Terumo glide sheath was inserte d into the right radial artery without difficulty. CORONARY ANGIOGRAPHY: Right and left coronary angiography was performed using a 6Fr TIG 4.0 catheter. Left ventricular end diastolic pressure was obtained with a pigtail catheter and pullback was performed after left ventri culography. All catheter exchanges and advancements were performed over a guidewire. CLOSURE: At case completion the right radial sheath was removed and a Terumo radial band was applied with 13 m l of air. COMPLICATIONS: The patient tolerated the procedure well and there were no immediate complications. FINDINGS: HEMODYNAMICS: LVEDP 10 mm Hg No gradient on LV to aortic pullback. AO: 150/78 LEFT VENTRICULOGRAM: EF 55% Anterobasal: Normal. Anterolateral: Normal Apical: Normal Diaphragmatic: Normal Posterobasal: Normal CORONARY ANGIOGRAPHY: LM is a large caliber vessel with normal angiographic appearance. LAD is a moderate caliber vessel with mild diffuse irregularities of up to 30%. D1 is a small caliber vessel with mild diffuse irregularities. LCx is a moderate caliber non-dominant vessel with normal angiographic appearance. OM1 is a moderate caliber vessel with normal angiographic appearance. RCA is a large caliber dominant vessel with normal angiographic appearance. RPDA and RPL are moderate caliber vessels with normal angiographic appearance. Conclusion 1. Normal left sided filling pressures. 2. Normal LV systolic function. 3. Minimal non-obstructive coronary disease. Recommendations 1. NSTEMI likely Type 2 (due to demand mismatch), aggresive medical therapy Signed by : Erasmo Swanson, Electronically Approved : 02/13/2019 16:10:44
[2019-02-17 16:11] LABS: METANEPH UR 58 ug/L (Undefined); TOTAL METANEPHRINES UR 125 ug/24 hr (45-290)
[2019-02-26] MEDS ORDERED: APIX5TAB PO (13:13)
[2019-02-26] MEDS ORDERED: PANT40TA77 PO (13:13)
== END 2019-02-15 12:18 | disposition home or self-care (01) | DRG 287 ==
LOC: 1 WEST ICU 12:40 → 2 SOUTH 02-14 18:38
PROVIDERS: ADMIT Internal Medicine; ATTEND Internal Medicine
PROC: B2111ZZ Fluoroscopy of Multiple Coronary Arteries using Low Osmolar Contrast (ICD-10-PCS; principal; 2019-02-13)
PROC: B2151ZZ Fluoroscopy of Left Heart using Low Osmolar Contrast (ICD-10-PCS; 2019-02-13)
PROC: 4A023N7 Measurement of Cardiac Sampling and Pressure, Left Heart, Percutaneous Approach (ICD-10-PCS; 2019-02-13)
DX: R07.9 Chest pain, unspecified (principal); Z68.42 Body mass index [BMI] 45.0-49.9, adult; D75.1 Secondary polycythemia; D75.82 Heparin induced thrombocytopenia (HIT); E66.01 Morbid (severe) obesity due to excess calories; E78.5 Hyperlipidemia, unspecified; G47.33 Obstructive sleep apnea (adult) (pediatric); J32.9 Chronic sinusitis, unspecified; I10 Essential (primary) hypertension; Z80.8 Family history of malignant neoplasm of other organs or systems; Z82.49 Family history of ischemic heart disease and other diseases of the circulatory system; Z82.5 Family history of asthma and other chronic lower respiratory diseases; Z86.711 Personal history of pulmonary embolism; Z86.718 Personal history of other venous thrombosis and embolism; Z90.710 Acquired absence of both cervix and uterus; Z91.19 Patient's noncompliance with other medical treatment and regimen; Z88.8 Allergy status to other drugs, medicaments and biological substances; Z88.1 Allergy status to other antibiotic agents; Z91.040 Latex allergy status
CPT/HCPCS: 36415; 80053; 82962; 83010; 83605; 83615; 83735; 83835; 84443; 84484; 84585; 85025; 85027; 85045; 93005; 93458; 99152; 99153; C1769; C1892; J1644; J1650; J2250; J3010; J3490; J7030; Q9967; G0378

== ENCOUNTER → 2019-04-08 | Outpatient (CLI) | payer BC ==
[2019-02-26 11:00] VITALS: BP 146/96
[~2019-04-08] MED LIST changes: +AMOX1TAB61 PO; +APIX5TAB PO; +PANT40TA77 PO; +SIMV20TA18 PO
--- NOTE | 2019-04-08 14:30 | KCIC ---
MRI right knee without contrast dated 04/08/2019. No comparison available. Clinical indication: Right knee pain. TECHNIQUE: Routine multiplanar multisequence MR imaging performed. FINDINGS: Moderate tricompartmental hypertrophic change with prominent marginal osteophytes. Thinning and surface irregularity of the articular cartilage throughout. Broad zones of full-thickness cartilage loss over the weightbearing surfaces medial femoral condyle and medial tibial plateau. There is also suspected full-thickness cartilage loss of the medial patellar facet and medial femoral trochlea. Small joint effusion. No significant popliteal cyst. No intra-articular loose body. Anterior cruciate and posterior cruciate ligaments intact. Medial and lateral collateral complexes are intact. Iliotibial band, popliteus tendon and pes anserine complex within normal limits. Quadriceps and patellar tendon are intact. No abnormality of the medial or lateral retinaculum. Mild patchy edema within the prepatellar and superficial and patellar soft tissues, nonspecific. Lateral meniscus is normal in morphology and signal. There is a focal radial tear at the posterior horn of medial meniscus near the meniscal root. The medial meniscal body is slightly extruded in the medial gutter and is blunting of the free edge. The anterior horn is intact. IMPRESSION: 1. Focal radial tear of the medial meniscal root. There is also free edge degenerative radial tearing of the medial meniscal body. 2. Moderate tricompartmental degenerative arthrosis and chondromalacia. There is full-thickness cartilage loss throughout the medial compartment with additional areas of full-thickness cartilage loss of the medial patellar facet and medial femoral trochlea. 3. Small joint effusion. Electronically signed by: Wilder Pa MD (04/08/2019 2:28 PM) [facility]
== END | disposition home or self-care (01) ==
LOC: KCIC MRI 12:11
PROVIDERS: ATTEND Physician Assistant Medical
DX: S83.241A Other tear of medial meniscus, current injury, right knee, initial encounter (principal); M94.261 Chondromalacia, right knee; M25.461 Effusion, right knee; X58.XXXA Exposure to other specified factors, initial encounter; Y93.89 Activity, other specified; Y92.89 Other specified places as the place of occurrence of the external cause; Y99.8 Other external cause status
CPT/HCPCS: 73721

== ENCOUNTER → 2019-05-18 | Outpatient (CLI) | payer BC ==
[2019-02-26 11:00] VITALS: BP 146/96
--- NOTE | 2019-05-18 10:16 | CARD ---
MR#: [id number] Date of Study: 05/18/2019 Ordering Physician: ERASMO SWANSON, Referring Physician: ERASMO SWANSON, Tech: Lisa Huntley [facility] APPROVED REPORT EXAM: Two-dimensional and M-mode echocardiogram with Doppler and color Doppler. Other Information Quality : Good INDICATION Arrhythmia History of DVT, Morbid Obesity 2D DIMENSIONS RVDd2.6 (2.9-3.5cm)Left Atrium(2D)3.6 (1.6-4.0cm) IVSd0.8 (0.7-1.1cm)Aortic Root(2D)2.4 (2.0-3.7cm) LVDd5.4 (3.9-5.9cm)LVOT Diameter1.9 (1.8-2.4cm) PWd0.8 (0.7-1.1cm)LVDs3.3 (2.5-4.0cm) FS (%) 30.0 %SV96.4 ml LVEF(%)60.0 (>50%) Aortic Valve AoV Peak Phillip.128.2cm/sAoV VTI24.9cm AO Peak GR.6.6mmHgLVOT Peak Phillip.110.7cm/s AO Mean GR.4mmHgAVA (VMAX)2.44cm2 HENRIK (VTI)2.90cm2 Mitral Valve MV E Ghergcmc271.8cm/sMV DECEL [id number] MV A Dcqmqmne48.4cm/sE/A Ratio1.4 Tricuspid Valve TR P. Xkgqznye465wh/sRAP [id number] TR Peak Gr.84kyWwSBAH10tnAw Pulmonary Vein S1 Zvsprlfl81.0cm/sD2 Qxchazfy94.1cm/s LEFT VENTRICLE The left ventricle is normal size. There is normal left ventricular wall thickness. The left ventricu lar systolic function is normal. The Ejection Fraction is 55-60%. There is normal LV segmental wall m otion. The left ventricular diastolic function and filling is normal for age. RIGHT VENTRICLE The right ventricle is normal size. The right ventricular systolic function is normal. ATRIA The left atrium size is normal. The right atrium size is normal. The interatrial septum is intact wit h no evidence for an atrial septal defect or patent foramen ovale as noted on 2-D or Doppler imaging. AORTIC VALVE The aortic valve is normal in structure and function. Doppler and Color Flow revealed no significant aortic regurgitation. There is no significant aortic valvular stenosis. MITRAL VALVE The mitral valve is normal in structure and function. There is no evidence of mitral valve prolapse. There is no mitral valve stenosis. Doppler and Color-flow revealed trace mitral regurgitation. TRICUSPID VALVE The tricuspid valve is normal in structure and function. Doppler and Color Flow revealed trace tricus pid regurgitation. There is no tricuspid valve stenosis. PULMONIC VALVE The pulmonic valve is not well visualized. Doppler and Color Flow revealed no pulmonic valvular regur gitation. There is no pulmonic valvular stenosis. GREAT VESSELS The aortic root is normal in size. The ascending aorta is normal in size. The IVC is normal in size a nd collapses >50% with inspiration. PERICARDIAL EFFUSION There is no evidence of significant pericardial effusion. Critical Notification Critical Value: No <Conclusion> The left ventricular systolic function is normal. The Ejection Fraction is 55-60%. There is normal LV segmental wall motion. Trace mitral regurgitation. Trace tricuspid regurgitation. There is no evidence of significant pericardial effusion. Signed by : Raul Sandra, Electronically Approved : 05/18/2019 10:15:43
== END | disposition home or self-care (01) ==
LOC: ECHO 07:26
PROVIDERS: ATTEND Internal Medicine Cardiovascular Disease
DX: I49.8 Other specified cardiac arrhythmias (principal); E66.01 Morbid (severe) obesity due to excess calories; Z86.718 Personal history of other venous thrombosis and embolism
CPT/HCPCS: 93306

== ENCOUNTER → 2019-07-11 | Outpatient (CLI) | payer BC ==
[2019-02-26 11:00] VITALS: BP 146/96
--- NOTE | 2019-07-13 18:46 | RAD ---
BILATERAL SCREENING MAMMOGRAM, 3-D History: Routine screening. Comparison: 05/24/2009 and 06/13/2015. Technique: MLO and CC digital tomosynthesis (3D) images obtained. Radiologist reviewed these images on dedicated workstation. Findings: Breast Tissue Density B : There are scattered areas of fibroglandular density. No mass or distortion. Small cluster of calcifications has developed in the interval compared to 06/13/2015 the right upper inner breast approximately 4 cm from the nipple.. IMPRESSION: Spot magnification imaging of the right breast calcifications recommended. BI-RADS Category 0: Incomplete: Need additional imaging evaluation. The images were reviewed with computer-aided detection. Patient information is entered into reminder system with a target due date for the next screening mammogram. Mammography is the most sensitive method for finding small breast cancers, but it does not detect them all and is not a substitute for careful clinical examination. A negative mammogram does not negate a clinically suspicious finding and should not result in delay in biopsying a clinically suspicious abnormality. "Our facility is accredited by the [employer] Mammography Program." Electronically signed by: Jamie Chapman MD (07/13/2019 6:43 PM) [facility]
== END | disposition home or self-care (01) ==
LOC: MAMMO 09:26
PROVIDERS: ATTEND Internal Medicine Hematology & Oncology
DX: Z12.31 Encounter for screening mammogram for malignant neoplasm of breast (principal); N64.89 Other specified disorders of breast
CPT/HCPCS: 77063; 77067

== ENCOUNTER → 2019-09-23 | Outpatient (CLI) | payer BC ==
[2019-02-26 11:00] VITALS: BP 146/96
--- NOTE | 2019-09-23 13:45 | RAD ---
EXAMINATION: DIGITAL DIAGNOSTIC RT, 09/23/2019 9:45 AM CLINICAL INDICATION: 53-year-old woman recalled from screening mammogram for right breast calcifications breast. COMPARISON: Screening mammogram 07/11/2019 FINDINGS: The breast contains scattered areas of fibroglandular density. On spot magnification CC and ML views, the group of calcifications in the upper outer right breast has mixed round and punctate morphology. IMPRESSION: 1. Probably benign calcifications in the right breast. I discussed with the patient that while these are most likely benign related to fibrocystic change, biopsy should be considered, particularly given that they are new from her most recent prior mammogram (although her most recent exam was in 2016). A reasonable alternative of six-month follow-up diagnostic mammogram was also discussed. The patient prefers a six-month follow-up exam at this time. 2. BI-RADS 3-probably benign. 3. Recommend 6 month follow-up diagnostic mammogram of the right breast with full field CC and MLO views of the right breast and spot magnification CC and ML views of the right breast calcifications. The patient will be sent a reminder letter before her next mammogram. Electronically signed by: Nata Pink MD (09/23/2019 1:42 PM) [id number]
== END | disposition home or self-care (01) ==
LOC: MAMMO 11:46
DX: R92.1 Mammographic calcification found on diagnostic imaging of breast (principal)
CPT/HCPCS: 77065

== ENCOUNTER → 2021-08-03 | Outpatient (CLI) | payer BC ==
[2019-02-26 11:00] VITALS: BP 146/96
[~2021-08-03] MED LIST changes: +AMLO-187 PO; -AMLO10TA8 PO
--- NOTE | 2021-08-03 16:13 | RAD ---
INDICATION: 55 year-old female presents for bilateral diagnostic mammogram. No personal history of br east cancer. Family history of breast cancer in mother in her 60s TECHNIQUE: Full field craniocaudal and mediolateral oblique images of both breasts with additional d iagnostic magnification views of the right breast. Images were obtained using digital technique with tomosynthesis and analyzed with computer-aided detection software. COMPARISON: Bilateral diagnostic mammogram 09/23/2019 and priors. BREAST COMPOSITION: The breasts are almost entirely fatty. FINDINGS: Small grouping of calcifications in the upper inner right breast, anterior depth demonstrate interval decrease in size. These demonstrate a benign round morphology on magnification views. There is no as sociated suspicious mass or asymmetry. No new significant masses, suspicious calcifications, or other findings suggestive of malignancy. IMPRESSION: No evidence of malignancy in either breast. RECOMMENDATION: Routine screening mammogram in one year. BI-RADS 2: Benign mammogram Electronically signed by: Tono Rojas DO (08/03/2021 4:10 PM) [id number]
== END ==
LOC: MAMMO 14:29
PROVIDERS: ATTEND Internal Medicine Hematology & Oncology
DX: R92.1 Mammographic calcification found on diagnostic imaging of breast (principal)
CPT/HCPCS: 77066; G0279; 77062